=== PATIENT | female | born 1965 | race African-American/Black ===

== ENCOUNTER 2025-05-12 06:58 | Inpatient (IN) | payer OTHER ==
[~2025-05-12] VITALS: Ht 160 cm; Wt 102.7 kg
[2025-05-12 07:00] VITALS: O2SAT 100
[2025-05-12] MEDS: SODIUM CHLORIDE 0.9% 1,000 ML IV ONE (07:24)
[2025-05-12] MEDS: ONDANSETRON HCL 4MG/2ML INJ IV ONE (07:34)
[2025-05-12 07:35] LABS: BASOPHILS % 0.4 % (0.0-2.0); EOSINOPHILS % 1.4 % (0.0-5.0); HEMATOCRIT. 34.4 % (36.0-48.0); HEMOGLOBIN. 11.4 g/dL (12.0-16.0); LYMPHOCYTES % 15.5 % (20.0-50.0); MEAN PLATELET VOLUME 9.6 fl (7.4-10.4); MONOCYTES % 1.2 % (2.0-8.0); NEUTROPHILS % 81.5 % (40.0-76.0); PLATELET 189 x1000/uL (130-400); RED BLOOD CELL COUNT 3.78 mill/uL (4.2-5.4); RED CELL DISTRIBUTION WIDTH 13.2 % (11.6-14.6)
[2025-05-12] MEDS: MORPHINE SULFATE 4 MG/ML INJ (FOR IV/IM USE) IV ONE (07:35)
[2025-05-12 07:54] LABS: CLARITY URINE CLEAR (CLEAR); COLOR URINE YELLOW (YELLOW); GLUCOSE URINE 3+ (NEGATIVE); KETONES URINE NEGATIVE (NEGATIVE); LEUKOCYTE ESTERASE URINE TRACE (NEGATIVE); NITRITE URINE NEGATIVE (NEGATIVE); OCCULT BLOOD URINE TRACE (NEGATIVE); PH URINE 7.5 (4.5-8.0); PROTEIN URINE TRACE (NEGATIVE); SPECIFIC GRAVITY URINE 1.025 (1.005-1.030); UROBILINOGEN URINE 0.2 E.U./dL (0.2-1.0)
[2025-05-12 07:56] LABS: CREATININE 1.0 mg/dL (0.6-1.0); UREA NITROGEN BLOOD 19 mg/dL (9-23)
[2025-05-12 07:58] LABS: ASPARTATE AMINOTRANSFERASE 34 IU/L (<34); BILIRUBIN DIRECT < 0.1 mg/dL (<=3.0); BILIRUBIN TOTAL 0.6 mg/dL (0.1-1.0); PROTEIN TOTAL 7.4 g/dL (6.0-8.3)
[2025-05-12] MEDS: KETOROLAC 30MG/ML VIAL IV ONE ×2 (08:21→10:36)
[2025-05-12 08:26] LABS: SQUAMOUS EPITHELIAL CELL URINE 1+ /lpf (RARE/1+)
[2025-05-12 08:27] LABS: BACTERIA URINE 3+; RBC URINE 0-2 /hpf (0-2); WBC URINE 15-25 /hpf (0-2)
[2025-05-12] MEDS: VANCOMYCIN 1G PREMIX 200 ML IV ONE (09:15)
[2025-05-12] MEDS: SODIUM CHLORIDE 0.9% (SEPSIS BOLUS) IV ONE (09:24)
[2025-05-12] MEDS: PIPERACILLIN/TAZO 3.375G/50ML 50 ML IV ONE (09:53)
[2025-05-12] MEDS ORDERED: ONDANSETRON HCL 4MG/2ML INJ IV PRN (11:45)
[2025-05-12] MEDS ORDERED: HYDROCODONE/ACETAMINOPHEN 5/325MG TABLET PO PRN (11:45)
[2025-05-12] MEDS ORDERED: MAGNESIUM/ALUMINUM HYDROXIDE/SIMETHICONE 30ML UDC PO PRN (11:45)
[2025-05-12] MEDS ORDERED: MORPHINE SULFATE 4 MG/ML INJ (FOR IV/IM USE) IV PRN (11:45)
[2025-05-12] MEDS ORDERED: ENOXAPARIN 40MG/0.4ML SYR SUBCUT SCH (11:45)
[2025-05-12] MEDS ORDERED: CLONIDINE 0.1MG TABLET PO PRN (11:45)
[2025-05-12 11:58] VITALS: BP 145/79; PULSE 130; RESP 20; TEMP 37.7524
[2025-05-12 12:00] VITALS: BP 146/71; PULSE 125; RESP 18; TEMP 36.6; O2SAT 98
[2025-05-12] MEDS ORDERED: NALOXONE HCL 0.4MG/ML VIAL IV PRN (12:00)
[2025-05-12] MEDS ORDERED: METF-416 PO (12:12)
[2025-05-12] MEDS: PANTOPRAZOLE SODIUM 40 MG/VIAL IV SCH (12:23)
[2025-05-12] MEDS: SODIUM CHLORIDE 0.9% 1,000 ML IV SCH (12:23)
[2025-05-12] MEDS: ACETAMINOPHEN 325MG TABLET PO PRN (12:26)
[2025-05-12] MEDS: PIPERACILLIN/TAZO 3.375G/50ML 50 ML IV SCH (13:10)
[2025-05-12] MEDS ORDERED: DIAZEPAM 5 MG/ML 2ML SYR IV PRN (15:30)
[2025-05-12 16:00] VITALS: BP 98/46; PULSE 119; RESP 18; TEMP 37.1; O2SAT 98
[2025-05-12] MEDS: TAMSULOSIN HCL 0.4MG SR CAPSULE PO SCH (16:41)
[2025-05-12] MEDS: KETOROLAC 30MG/ML VIAL IV SCH (16:42)
[2025-05-12] MEDS: ENOXAPARIN 30MG/0.3ML SYR SUBCUT SCH (17:07)
[2025-05-12 17:49] LABS: INR 1.0
[2025-05-12 20:00] VITALS: BP 90/44; PULSE 114; RESP 20; TEMP 36.2; O2SAT 100
[2025-05-12] MEDS ORDERED: ZOLPIDEM TARTRATE 5MG TABLET PO PRN (21:00)
[2025-05-13] VITALS: BP 95/45; PULSE 108; RESP 18; TEMP 36.1; O2SAT 96
[2025-05-13 02:48] LABS: *AMPHETAMINES SCREEN URINE NEGATIVE (NEGATIVE)
[2025-05-13 02:49] LABS: *BARBITURATES SCREEN URINE NEGATIVE (NEGATIVE); *BENZODIAZEPINES SCREEN URINE NEGATIVE (NEGATIVE); *COCAINE SCREEN URINE NEGATIVE (NEGATIVE); CANNABINOID URINE SCREEN NEGATIVE (NEGATIVE); ECSTASY MDMA SCREEN URINE NEGATIVE (NEGATIVE); METHADONE URINE SCREEN NEGATIVE (NEGATIVE); OPIATES URINE SCREEN PRESUMPTIVE POSITIVE (NEGATIVE); PHENCYCLIDINE URINE SCREEN NEGATIVE (NEGATIVE)
[2025-05-13 04:00] VITALS: BP 91/54; PULSE 102; RESP 22; TEMP 36.3; O2SAT 96
[2025-05-13 08:00] VITALS: BP 90/54; PULSE 105; RESP 18; TEMP 36.1; O2SAT 97
[2025-05-13 09:37] LABS: HEMATOCRIT. 28.0 % (36.0-48.0); HEMOGLOBIN. 9.2 g/dL (12.0-16.0); MEAN PLATELET VOLUME 10.2 fl (7.4-10.4); PLATELET 132 x1000/uL (130-400); RED BLOOD CELL COUNT 3.07 mill/uL (4.2-5.4); RED CELL DISTRIBUTION WIDTH 13.3 % (11.6-14.6)
[2025-05-13 09:43] LABS: CREATININE 1.6 mg/dL (0.6-1.0); UREA NITROGEN BLOOD 30.0 mg/dL (9-23)
[2025-05-13] MEDS ORDERED: DEXTROSE 50% WATER 50ML SYRINGE IV PRN (11:30)
[2025-05-13] MEDS: BLOOD SUGAR DIAGNOSTIC STRIP TEST SCH (11:47)
[2025-05-13 12:00] VITALS: BP 102/61; PULSE 95; RESP 18; TEMP 36.4; O2SAT 98
[2025-05-13] MEDS: INSULIN LISPRO 100 UNITS/ML SUBCUT SCH (12:38)
[2025-05-13 13:56] LABS: BAND% 43.0 % (1.0-6.0); LYMPHOCYTES % MANUAL 2.0 % (20.0-60.0); METAMYELOCYTES % 2.0 % (0-0); MONOCYTES % MANUAL 3.0 % (2.0-8.0); NEUTROPHILS % MANUAL 50.0 % (45.0-75.0); PLATELET ESTIMATE NORMAL
[2025-05-13 16:30] VITALS: BP 100/56; PULSE 103; RESP 18; TEMP 37.2; O2SAT 100
[2025-05-13 20:00] VITALS: BP 106/54; PULSE 96; RESP 18; TEMP 36.4; O2SAT 98
[2025-05-14] VITALS: BP 105/59; PULSE 110; RESP 18; TEMP 36.5; O2SAT 97
[2025-05-14 04:00] VITALS: BP_SYST 109; BP_SYST 121; BP_DIAS 53; BP_DIAS 63; PULSE 126; PULSE 98; RESP 18; TEMP 36.3; TEMP 36.5; O2SAT 97
[2025-05-14 08:00] VITALS: BP 116/62; PULSE 107; RESP 17; TEMP 36.7; O2SAT 99
[2025-05-14 08:36] LABS: HEMATOCRIT. 28.2 % (36.0-48.0); HEMOGLOBIN. 9.4 g/dL (12.0-16.0); MEAN PLATELET VOLUME 9.8 fl (7.4-10.4); PLATELET 127 x1000/uL (130-400); RED BLOOD CELL COUNT 3.11 mill/uL (4.2-5.4); RED CELL DISTRIBUTION WIDTH 13.2 % (11.6-14.6)
[2025-05-14 09:08] LABS: CREATININE 1.5 mg/dL (0.6-1.0)
[2025-05-14 09:09] LABS: UREA NITROGEN BLOOD 27.0 mg/dL (9-23)
[2025-05-14 12:00] VITALS: BP 118/66; PULSE 99; RESP 18; TEMP 36.5; O2SAT 100
[2025-05-14] MEDS ORDERED: CEFT2FRO5 IV (12:33)
[2025-05-14] MEDS ORDERED: TAMS-54 PO (12:33)
[2025-05-14] MEDS ORDERED: LIDOCAINE HCL 1% 10 MG/ML 10ML VIAL ONE (14:17)
[2025-05-14 16:00] VITALS: BP 121/71; PULSE 91; RESP 18; TEMP 36.9; O2SAT 98
[2025-05-14 20:00] VITALS: BP 125/82; PULSE 64; RESP 18; TEMP 36.4; O2SAT 99
[2025-05-15] VITALS: BP 124/74; PULSE 92; RESP 20; TEMP 36.8; O2SAT 100
[2025-05-15 04:00] VITALS: BP 130/70; PULSE 97; RESP 18; TEMP 36.6; O2SAT 100
[2025-05-15 06:31] LABS: BASOPHILS % 0.3 % (0.0-2.0); EOSINOPHILS % 1.3 % (0.0-5.0); HEMATOCRIT. 29.8 % (36.0-48.0); HEMOGLOBIN. 10.1 g/dL (12.0-16.0); LYMPHOCYTES % 12.5 % (20.0-50.0); MEAN PLATELET VOLUME 9.9 fl (7.4-10.4); MONOCYTES % 5.0 % (2.0-8.0); NEUTROPHILS % 80.9 % (40.0-76.0); PLATELET 141 x1000/uL (130-400); RED BLOOD CELL COUNT 3.33 mill/uL (4.2-5.4); RED CELL DISTRIBUTION WIDTH 13.4 % (11.6-14.6)
[2025-05-15 06:47] LABS: CREATININE 1.5 mg/dL (0.6-1.0); UREA NITROGEN BLOOD 24.0 mg/dL (9-23)
[2025-05-15 08:00] VITALS: BP 143/66; PULSE 89; RESP 18; TEMP 36.5; O2SAT 97
[2025-05-15 08:27] LABS: BAND% 16.0 % (1.0-6.0); EOSINOPHILS % MANUAL 2.0 % (0.0-5.0); LYMPHOCYTES % MANUAL 6.0 % (20.0-60.0); MONOCYTES % MANUAL 5.0 % (2.0-8.0); NEUTROPHILS % MANUAL 71.0 % (45.0-75.0); PLATELET ESTIMATE SLIGHTLY DECREASED
[2025-05-15 12:00] VITALS: BP 134/74; PULSE 77; RESP 16; TEMP 36.7; O2SAT 96
[2025-05-15 16:00] VITALS: BP 147/75; PULSE 84; RESP 18; TEMP 36.5; O2SAT 100
[2025-05-15 20:00] VITALS: BP 156/71; PULSE 87; RESP 18; TEMP 36.6; O2SAT 95
[2025-05-16] VITALS: BP 142/77; PULSE 77; RESP 18; TEMP 36.6; O2SAT 95
[2025-05-16 04:00] VITALS: BP 144/70; PULSE 85; RESP 18; TEMP 36.4; O2SAT 95
[2025-05-16 08:00] VITALS: BP 147/76; PULSE 82; RESP 20; TEMP 36.7; O2SAT 99
[2025-05-16] MEDS ORDERED: LEVO750T68 MT (09:46)
[2025-05-16 12:00] VITALS: BP 147/63; PULSE 99; RESP 18; TEMP 36.7; O2SAT 98
[2025-05-16 13:29] VITALS: BP 147/63; PULSE 99; RESP 18; TEMP 98
== END 2025-05-16 16:15 | disposition home health service (06) | DRG 872 ==
LOC: ER 06:58 → 8WST 10:41 → EDBEDREQ 10:50 → ENRESERV 11:03
PROVIDERS: ADMIT Internal Medicine; ATTEND Internal Medicine
PROC: 02HV33Z Insertion of Infusion Device into Superior Vena Cava, Percutaneous Approach (ICD-10-PCS; principal; 2025-05-14)
PROC: B548ZZA Ultrasonography of Superior Vena Cava, Guidance (ICD-10-PCS; 2025-05-14)
DX: A41.9 Sepsis, unspecified organism (principal); E87.20 Acidosis, unspecified; Z68.41 Body mass index [BMI] 40.0-44.9, adult; N17.9 Acute kidney failure, unspecified; N13.6 Pyonephrosis; R65.20 Severe sepsis without septic shock; I10 Essential (primary) hypertension; E11.9 Type 2 diabetes mellitus without complications; E66.01 Morbid (severe) obesity due to excess calories; K57.90 Diverticulosis of intestine, part unspecified, without perforation or abscess without bleeding; D64.9 Anemia, unspecified; B96.20 Unspecified Escherichia coli [E. coli] as the cause of diseases classified elsewhere; Z90.710 Acquired absence of both cervix and uterus; Z79.899 Other long term (current) drug therapy
CPT/HCPCS: 36415; 36573; 71045; 74176; 80048; 80076; 80305; 81003; 82962; 83036; 83605; 84145; 84443; 85025; 87077; 87186; 93970; 99291; C1725; J1650; J1815; J1885; J2003; J2270; J2405; J2470; J2543; J3373; J7030